=== PATIENT | female | born 1990 | race Caucasian/White ===

== ENCOUNTER 2018-08-03 14:52 | Emergency (ER) | payer OTHER ==
[2018-08-03 15:41] LABS: BILIRUBIN,URINE NEGATIVE (NEGATIVE); GLUCOSE, URINE (UA) NEGATIVE (NEGATIVE); KETONES,URINE (UA) NEGATIVE (NEGATIVE); LEUKOCYTE ESTERASE, URINE NEGATIVE (NEGATIVE); NITRITE,URINE NEGATIVE (NEGATIVE); OCCULT BLOOD,URINE NEGATIVE (NEGATIVE); PH,URINE 7.5 PH (5.0-7.5); PROTEIN,URINE NEGATIVE (NEGATIVE); UROBILINOGEN,URINE 0.2 (NORMAL) E.U./dL (NORMAL)
[2018-08-03 15:44] LABS: CLARITY,URINE CLEAR (CLEAR)
--- NOTE | 2018-08-03 15:55 | ED Physician Documentation ---
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 She was normally taking some Klonopin and she is not able to take this anymore. She is wondering what other types of things she can do. She believes she is 6 weeks and she has had a positive home because she is gone into the clinic and had the test there she has not had an ultrasound with this . Review of Systems Constitutional: denies: Fever, Chills Eyes: denies: Decreased vision Ears: denies: Ear pain Nose: denies: Rhinorrhea / runny nose, Congestion Throat: denies: Sore throat Cardiac: denies: Chest pain / pressure, Palpitations Respiratory: denies: Dyspnea, Cough GI: reports: Nausea. denies: Abdominal Pain, Vomiting, Constipation, Diarrhea : denies: Dysuria, Frequency Skin: denies: Rash Musculoskeletal: denies: Neck pain, Back pain, Extremity pain Neurologic: denies: Generalized weakness, Focal weakness, Numbness Psychiatric: reports: Anxiety PD PAST MEDICAL HISTORY - Present Medications Home Medications: Ambulatory Orders Medication Instructions Recorded Confirmed Folic Acid 1 mg PO DAILY 08/03/18 08/03/18 Pnv No.95/Ferrous Fum/Folic AC 1 tab PO DAILY 08/03/18 08/03/18 [ Caplet] metFORMIN [Glucophage] 500 mg PO ONCE 08/03/18 08/03/18 - Allergies Allergies/Adverse Reactions: Allergies Allergy/AdvReac Type Severity Reaction Status Date / Time cefprozil Allergy Hives Verified 08/03/18 15:00 cephalexin [From Keflex] Allergy Rash Verified 08/03/18 14:59 Penicillins Allergy Hives Verified 08/03/18 14:59 shellfish derived Allergy Hives Verified 08/03/18 15:01 PD ED PE NORMAL - Vitals Vital signs reviewed: Yes (hypertensive mild ) - General General: Alert and oriented X 3, Well developed/nourished, Other (breaks down in tears right away) - HEENT HEENT: Atraumatic, PERRL, EOMI - Neck Neck: Supple, no meningeal sign, No bony TTP - Cardiac Cardiac: RRR, No murmur - Respiratory Respiratory: No respiratory distress, Clear bilaterally - Abdomen Abdomen: Soft, Non tender - Back Back: No CVA TTP, No spinal TTP - Derm Derm: Normal color, Warm and dry, No rash - Extremities Extremities: No deformity, No edema - Neuro Neuro: Alert and oriented X 3, 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, No motor deficit, No sensory deficit, Normal speech Eye Opening: Spontaneous Motor: Obeys Commands Verbal: Oriented GCS Score: 15 - Psych Psych: Other (mood is anxious and the affect is labile) Results - Vitals Vitals: Vital Signs - 24 hr 08/03/18 08/03/18 14:56 16:32 Temperature 36.6 C 36.3 C L Heart Rate 82 65 Respiratory 17 18 Rate Blood Pressure 141/76 H 126/74 O2 Saturation 100 100 Oxygen O2 Source Room air - Labs Labs: Laboratory Tests 08/03/18 15:38 Urine Color YELLOW Urine Clarity CLEAR Urine pH 7.5 Ur Specific [place] 1.010 Urine Protein NEGATIVE Urine Glucose (UA) NEGATIVE Urine Ketones NEGATIVE Urine Occult Blood NEGATIVE Urine Nitrite NEGATIVE Urine Bilirubin NEGATIVE Urine Urobilinogen 0.2 (NORMAL) Ur Leukocyte Esterase NEGATIVE Ur Microscopic Review NOT INDICATED Urine Culture Comments NOT INDICATED Procedures - Bedside sono Bedside sono by EMP: With use of bedside ultrasound the pelvis is imaged and there is a gestational sac measuring 7 weeks 3 days with a pole present. PD MEDICAL DECISION MAKING - ED course Complexity details: reviewed results, re-evaluated patient, considered differ ential, d/w patient ED course: 28-year-old female with a history of anxiety is not able to take her Klonopin she does appear quite anxious she is taught techniques of yoga breathing and we have offered Benadryl to take at night. She has had counseling previously but this has been with a different provider each time and this has not been satisfactory for the patient. She has previously been on Prozac and this did cause her some problem with being able to drive. Social work is consulted for resources for counseling. Departure - Departure Disposition: Home, Self Care Clinical Impression: Early stage of , Anxiety Condition: Stable Instructions: Preg 1st Trimester Coping, Hyperventilation Syndrome, ED Stress React, ED Panic Attack, ED Care Follow-Up: Gloria Genao MD [Primary Care Provider] -
[2018-08-03 16:33] VITALS: BP 126/74
== END 2018-08-03 18:02 | disposition home or self-care (01) ==
LOC: ED 14:52
DX: O99.341 Other mental disorders complicating pregnancy, first trimester (principal)
CPT/HCPCS: 81001; 81003; 87086; 99283

== ENCOUNTER 2018-08-23 13:16 | Emergency (ER) | payer OTHER ==
[2018-08-23] MEDS ORDERED: diphenhydrAMINE INJ 50 MG/ML VIAL IVP STA (13:55)
[2018-08-23] MEDS ORDERED: SODIUM CHLORIDE 0.9% 1,000 ML IV ONE (13:55)
[2018-08-23] MEDS ORDERED: METOCLOPRAMIDE 10 MG/2 ML VIAL IVP STA (13:55)
--- NOTE | 2018-08-23 14:09 | ED Physician Documentation ---
History of Present Illness - Stated complaint Stated Complaint: 10 WKS PREG/VOMITING WEAKNESS - Chief complaint Chief Complaint: General - History obtained from History obtained from: Patient - History of Present Illness Timing: Other (G1, P0 at 10 weeks gestation presents with vomiting for 2 weeks that is worsening. She also has a Left retro-orbital headache similar to prior migraines and she was hesitant to take her Imitrex because of the . She also complains of 3 weeks of worsening nasal congestion and sinus pain without fevers.) Review of Systems Constitutional: denies: Fever, Chills Ears: denies: Ear pain Nose: reports: Rhinorrhea / runny nose, Congestion, Sinus pressure / pain Throat: denies: Sore throat GI: reports: Nausea, Vomiting. 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 : None HEENT: None Psych: Anxiety Musculoskeletal: None Derm: None - Past Surgical History Past Surgical History: Yes Ortho: ACL reconstruction HEENT: Other - Present Medications Home Medications: Ambulatory Orders Medication Instructions Recorded Confirmed Folic Acid 1 mg PO DAILY 08/03/18 08/03/18 Pnv No.95/Ferrous Fum/Folic AC 1 tab PO DAILY 08/03/18 08/03/18 [ Caplet] metFORMIN [Glucophage] 500 mg PO ONCE 08/03/18 08/03/18 Azithromycin [Zithromax] 1 tab PO DAILY #6 tablet 08/23/18 Metoclopramide [Reglan] 10 mg PO Q6H PRN #20 tablet 08/23/18 Mometasone Furoate [Nasonex] 1 spray NS BID #1 spray.pump 08/23/18 - Allergies Allergies/Adverse Reactions: Allergies Allergy/AdvReac Type Severity Reaction Status Date / Time cefprozil Allergy Hives Verified 08/23/18 13:23 cephalexin [From Keflex] Allergy Rash Verified 08/23/18 13:23 Penicillins Allergy Hives Verified 08/23/18 13:23 shellfish derived Allergy Hives Verified 08/23/18 13:23 - Social History Does the pt smoke?: No Smoking Status: Never smoker Does the pt drink ETOH?: No Does the pt have substance abuse?: No - Immunizations Immunizations are current?: No Immunizations: TDAP >10years/unknown - POLST Patient has POLST: No PD ED PE NORMAL - Vitals Vital signs reviewed: Yes - General General: Alert and oriented X 3, No acute distress - HEENT HEENT: Other (Tender the maxillary sinuses, normal oropharynx) - Neck Neck: Supple, no meningeal sign, No bony TTP - Cardiac Cardiac: RRR, No murmur - Respiratory Respiratory: No respiratory distress, Clear bilaterally - Abdomen Abdomen: Normal bowel sounds, Soft, Non tender - Female Female : Other (Bedside ultrasound demonstrates single live intrauterine with a heart rate 158.) - Extremities Extremities: No edema, No calf tenderness / cord - Neuro Neuro: Alert and oriented X 3, Normal speech Results - Vitals Vitals: Vital Signs - 24 hr 08/23/18 13:18 Temperature 36.7 C Heart Rate 67 Respiratory 14 Rate Blood Pressure 157/94 H O2 Saturation 100 Oxygen O2 Source Room air - Labs Labs: Laboratory Tests 08/23/18 14:04 Sodium 135 Potassium 3.6 Chloride 101 Carbon Dioxide 22 Anion Gap 12.0 BUN 6 Creatinine 0.6 Estimated GFR (MDRD) 121 Glucose 94 Calcium 9.5 Total Bilirubin 0.5 AST 16 ALT 13 Alkaline Phosphatase 51 Total Protein 8.0 Albumin 4.2 Globulin 3.8 Albumin/Globulin Ratio 1.1 Lipase 26 PD MEDICAL DECISION MAKING - ED course ED course: This is a 28-year-old woman with vomiting and . She was administered IV fluids, Reglan, and Benadryl which should also help with her headache. She does fit IDSA criteria for antibiotic treatment for rhinosinusitis as well, noting penicillin allergy, amoxicillin was not given. Departure - Departure Disposition: 01 Home, Self Care Clinical Impression: Hyperemesis Sinusitis Qualifiers: Sinusitis location: maxillary Chronicity: acute Recurrence: recurrent Qualified Code(s): J01.01 - Acute recurrent maxillary sinusitis Migraine Qualifiers: Migraine type: without aura Status migrainosus presence: with status migrainosus Intractability: not intractable Qualified Code(s): G43.001 - Migraine without aura, not intractable, with status migrainosus Condition: Good Record reviewed to determine appropriate education?: Yes Instructions: ED Sinusitis Abx Tx, ED Preg Morning Sickness Prescriptions: Azithromycin [Zithromax] 1 tab PO DAILY #6 tablet Metoclopramide [Reglan] 10 mg PO Q6H PRN #20 tablet PRN Reason: nausea or headache Mometasone Furoate [Nasonex] 1 spray NS BID #1 spray.pump Comments: Call your doctor to arrange a follow-up appointment, make the next available appointment. In the interim, return anytime if worse or if new symptoms develop.
[2018-08-23 14:24] LABS: ALBUMIN 4.2 g/dL (3.2-5.5); ALBUMIN/GLOBULIN RATIO 1.1 (1.0-2.2); BILIRUBIN,TOTAL 0.5 mg/dL (0.2-1.0); CALCIUM 9.5 mg/dL (8.5-10.3); CREATININE 0.6 mg/dL (0.4-1.0)
[2018-08-23 15:22] VITALS: BP 114/72
[2018-08-23 15:23] LABS: BILIRUBIN,URINE NEGATIVE (NEGATIVE); GLUCOSE, URINE (UA) NEGATIVE (NEGATIVE); KETONES,URINE (UA) TRACE mg/dL (NEGATIVE); LEUKOCYTE ESTERASE, URINE NEGATIVE (NEGATIVE); NITRITE,URINE NEGATIVE (NEGATIVE); OCCULT BLOOD,URINE NEGATIVE (NEGATIVE); PH,URINE 7.5 PH (5.0-7.5); PROTEIN,URINE NEGATIVE (NEGATIVE); UROBILINOGEN,URINE 0.2 (NORMAL) E.U./dL (NORMAL)
[2018-08-23 15:26] LABS: CLARITY,URINE CLEAR (CLEAR)
== END 2018-08-23 15:22 | disposition home or self-care (01) ==
LOC: ED 13:16
DX: O21.0 Mild hyperemesis gravidarum (principal); Z3A.10 10 weeks gestation of pregnancy; O99.89 Other specified diseases and conditions complicating pregnancy, childbirth and the puerperium; J01.01 Acute recurrent maxillary sinusitis; G43.901 Migraine, unspecified, not intractable, with status migrainosus
CPT/HCPCS: 36415; 80053; 81003; 83690; 96361; 96374; 96375; 99283; J1200; J2765; 81001; 87086

== ENCOUNTER 2018-09-29 08:43 | Emergency (ER) | payer OTHER ==
--- NOTE | 2018-09-29 09:40 | ED Physician Documentation ---
PD HPI URI - Stated complaint Stated Complaint: SOA, COUGH, BODY ACHES, CHEST PX, ANXIETY, 14WKS P - Chief complaint Chief Complaint: General - History obtained from History obtained from: Patient - History of Present Illness Timing - onset: How many weeks ago (1 week of cough and URI symptoms, then with migraine compatible headache started yesterday. She usually would take Maxalt, but is , so did not take anything. Has some headache still and nauseated, with vomiting since yesterday. Feeling generally weak. Feeling anxiety as well, about effect on .) Timing details: Gradual onset, Still present Associated symptoms: Rhinorrhea, Dry cough, Dyspnea (with the cough for the past week.), NVD (since yesterday with the migraine). No: Fever, Chills Contributing factors: Other (migraines episodic in the past, usually every few months.). No: Sick contact, COPD / asthma Worsened by: No: Activity Similar symptoms before: Diagnosis (migraines in the past. Has had some URIs in the past.) Review of Systems Constitutional: denies: Fever Nose: reports: Rhinorrhea / runny nose, Congestion Throat: denies: Sore throat Cardiac: denies: Chest pain / pressure Respiratory: reports: Dyspnea, Cough, Wheezing GI: reports: Nausea, Vomiting. denies: Abdominal Pain, Diarrhea : reports: Now EGA (14). denies: Dysuria, Frequency, Discharge Musculoskeletal: denies: Neck pain, Back pain Neurologic: reports: Generalized weakness, Headache (since yesterday c/w migraine symptoms). 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 : None HEENT: None Psych: Anxiety Musculoskeletal: None Derm: None - Past Surgical History Past Surgical History: Yes Ortho: ACL reconstruction HEENT: Other - Present Medications Home Medications: Ambulatory Orders Medication Instructions Recorded Confirmed Folic Acid 1 mg PO DAILY 08/03/18 08/03/18 Pnv No.95/Ferrous Fum/Folic AC 1 tab PO DAILY 08/03/18 08/03/18 [ Caplet] metFORMIN [Glucophage] 500 mg PO ONCE 08/03/18 08/03/18 Azithromycin [Zithromax] 1 tab PO DAILY #6 tablet 08/23/18 Metoclopramide [Reglan] 10 mg PO Q6H PRN #20 tablet 08/23/18 Mometasone Furoate [Nasonex] 1 spray NS BID #1 spray.pump 08/23/18 - Allergies Allergies/Adverse Reactions: Allergies Allergy/AdvReac Type Severity Reaction Status Date / Time cefprozil Allergy Hives Verified 09/29/18 08:55 cephalexin [From Keflex] Allergy Rash Verified 09/29/18 08:55 Penicillins Allergy Hives Verified 09/29/18 08:55 shellfish derived Allergy Hives Verified 09/29/18 08:55 - Social History Does the pt smoke?: No Smoking Status: Never smoker Does the pt drink ETOH?: No Does the pt have substance abuse?: No - Immunizations Immunizations are current?: No Immunizations: TDAP >10years/unknown - POLST Patient has POLST: No PD ED PE NORMAL - Vitals Vital signs reviewed: Yes - General General: Alert and oriented X 3, Well developed/nourished, Other (seems uncomfortable but conversant. Light sensitive. ) - HEENT HEENT: PERRL, EOMI (light sensitive), Ears normal, Pharynx benign - Neck Neck: Supple, no meningeal sign, No adenopathy - Cardiac Cardiac: RRR, No murmur - Respiratory Respiratory: Clear bilaterally - Abdomen Abdomen: Soft, Non tender, Other (bedside U/S showing IUP with good movement and heart rate. No pelvic free fluid seen. ) - Female Female : Deferred - Rectal Rectal: Deferred - Back Back: No CVA TTP - Derm Derm: Normal color, Warm and dry, No rash - Extremities Extremities: Normal ROM s pain, No edema, No calf tenderness / cord - Neuro Neuro: Alert and oriented X 3, No motor deficit, Normal speech Results - Vitals Vitals: Vital Signs - 24 hr 09/29/18 09/29/18 08:52 10:13 Temperature 36.3 C L 36.8 C Heart Rate 87 81 Respiratory 20 16 Rate Blood Pressure 136/88 H 122/81 H O2 Saturation 99 99 Oxygen O2 Source Room air PD MEDICAL DECISION MAKING - ED course Complexity details: re-evaluated patient (Discussed with patient getting IV fluids and meds for migraine and nausea. She had gotten IV placed and then nurses say the patient got anxious and wanted to leave without medications. States has Rx for antiemetic at home. We had talked about what OTC meds are okay in . ), considered differential (bedside U/S by me showed normal IUP with HR 150s and visible movement. No free fluid in pelvis. ), d/w patient Departure - Departure Disposition: ED [place] Clinical Impression: Qualifiers: Weeks of gestation: 14 weeks Qualified Code(s): Z3A.14 - 14 weeks gestation of Migraine headache Qualifiers: Migraine type: without aura Status migrainosus presence: with status migrainosus Intractability: not intractable Qualified Code(s): G43.001 - Migraine without aura, not intractable, with status migrainosus Upper respiratory infection Qualifiers: URI type: unspecified URI Qualified Code(s): J06.9 - Acute upper respiratory infection, unspecified Condition: Stable Record reviewed to determine appropriate education?: Yes Discharge Date/Time: 09/29/18 10:55
[2018-09-29] MEDS ORDERED: SODIUM CHLORIDE 0.9% 1,000 ML IV ONE ×2 (09:52→09:53)
[2018-09-29] MEDS ORDERED: diphenhydrAMINE INJ 50 MG/ML VIAL IVP STA (09:52)
[2018-09-29] MEDS ORDERED: METOCLOPRAMIDE 10 MG/2 ML VIAL IVP STA (09:52)
[2018-09-29] MEDS ORDERED: KETOROLAC 15 MG/ML VIAL IVP STA (09:52)
[2018-09-29] MEDS ORDERED: DEXAMETHASONE 10 MG/ML VIAL IVP STA (09:53)
[2018-09-29 10:14] VITALS: BP 122/81
== END 2018-09-29 10:55 | disposition left against medical advice (07) ==
LOC: ED 08:43
DX: O99.352 Diseases of the nervous system complicating pregnancy, second trimester (principal); G43.001 Migraine without aura, not intractable, with status migrainosus; O98.812 Other maternal infectious and parasitic diseases complicating pregnancy, second trimester; J06.9 Acute upper respiratory infection, unspecified; Z3A.14 14 weeks gestation of pregnancy
CPT/HCPCS: 87275; 87276; 99283; 99284

== ENCOUNTER 2018-12-14 11:03 | Outpatient (CLI) | payer OTHER ==
[2018-12-14 12:16] LABS: MEAN CORPUSCULAR HEMOGLOBIN 30.1 pg (27.0-31.0); MEAN CORPUSCULAR HGB CONC 33.2 g/dL (32.0-36.0); MEAN CORPUSCULAR VOLUME 90.7 fL (81.0-99.0); MEAN PLATELET VOLUME 11.1 fL (7.9-10.8); RED BLOOD COUNT 4.32 10^6/uL (4.20-5.40); WHITE BLOOD COUNT 10.4 x10^3/uL (4.8-10.8)
== END 2018-12-14 11:04 | disposition home or self-care (01) ==
LOC: LAB 11:03
PROVIDERS: ATTEND Nurse Practitioner Obstetrics & Gynecology
DX: Z36.89 Encounter for other specified antenatal screening (principal)
CPT/HCPCS: 36415; 82950; 85027; 86850

== ENCOUNTER 2019-02-09 19:41 | Outpatient (CLI) | payer OTHER ==
[2019-02-09 19:56] VITALS: BP 116/80
--- NOTE | 2019-02-10 01:37 | Ultrasound Report ---
Reason: Pain from fall Procedure Date: 02/10/2019 Accession Number: [id number] / [id number] Procedure: US - OB Limited CPT Code: FULL RESULT: EXAM: LIMITED OBSTETRICAL ULTRASOUND EXAM DATE: 02/10/2019 01:23 AM. CLINICAL HISTORY: Pain from fall. COMPARISON: None. TECHNIQUE: Real-time sonographic evaluation of the fetus performed by the weatherization specialist. Multiple architectural representative static images were saved for review. Additional transvaginal imaging to more accurately evaluate cervical length and placental position. DATING: Established EGA 33 weeks 6 days with WOO 03/25/2019. GENERAL EVALUATION Jacome . Cardiac activity: 127 bpm. movement: Visualized. Presentation: Cephalic. Placenta: Anterior position. No previa or abruption. Amniotic fluid: Normal. SHA 25 cm. MVP 7.15 cm. MATERNAL STRUCTURES The cervix measures 2.8 cm, and is closed. IMPRESSION: 1. Jacome live intrauterine with gestational age 33 weeks 6 days based on established WOO. 2. Anterior placenta, without evidence of previa or abruption. RADIA
--- NOTE | 2019-02-10 10:19 | PROVIDER PROGRESS NOTE ---
- HPI Chief Complaint: Maternal trauma Current : Current EDU 03/25/19 Gestation 33 Weeks and 5 Days 1 Para 0 Vital Signs Temperature 36.7 C 02/09/19 19:53 Heart Rate 76 02/09/19 19:53 Respiratory Rate 16 02/09/19 19:53 Blood Pressure 116/80 02/09/19 19:53 O2 Saturation 96 02/09/19 19:53 Temperature 36.7 C 02/09/19 19:53 Heart Rate 76 02/09/19 19:53 Respiratory Rate 16 02/09/19 19:53 Blood Pressure 116/80 02/09/19 19:53 O2 Saturation 96 02/09/19 19:53 - Procedures OB Procedure Performed: NST Diagnosis/Indication for NST: Other NST Procedure: NST reactive. Baseline 140s, moderate variability, + accels, no decels Initially uterine irritability noted via tocometry, which progressed to mild contractions every 5-9 minutes with soft resting tone despite adequate hydration. Service Date of procedure: 02/09/19 - Plan Plan: Dulce Maria presents to [facility] following a fall after stepping out of the bathtub into a puddle and hitting her abdomen directly on the edge of her tub. She denies vaginal bleeding, leakage of fluid or contractions. She reports initially she did not feel movement but on her drive here and since she has been feeling adequate movement. She denies pain or abdominal discomfort but states she will likely be sore tomorrow secondary to her fall. Physical Exam: No evidence of abrasion or visible injury to abdomen or other impacted areas of the body. No abdominal pain, tenderness, or rigidity upon palpation. Date read 02/09/2019 NST reactive. Baseline 140s, moderate variability, + accels, no decels. Initial uterine irritability appreciated via tocomety. For an approximate 2 hour period of time, contractions palpate mild every 5-9 minutes with soft resting tone despite adequate hydration. Pt appreciates contractions and prior to discharge home contractions did decrease. Extended monitoring x 6 hours. Limited OB ultrasound reveals SHA 25, Transvaginal cervical length 2.8cm, closed, no evidence of placental abruption Patient released home with precautions and advised daily kick counts. Pt verbalized understanding and agrees to above plan. She denies further questions or concerns at this time. FINAL DIAGNOSIS: Fall during , initial encounter 33wk gestation of
== END 2019-02-10 01:55 | disposition home or self-care (01) ==
LOC: WFO 19:41 → FBP 19:43 → WFO 02-10 01:55
PROVIDERS: ATTEND Nurse Practitioner Obstetrics & Gynecology
DX: Z04.3 Encounter for examination and observation following other accident (principal); O47.03 False labor before 37 completed weeks of gestation, third trimester; Z3A.33 33 weeks gestation of pregnancy
CPT/HCPCS: 76815; 76817; 99214

== ENCOUNTER 2019-02-28 08:00 | Outpatient (CLI) | payer OTHER ==
[2019-02-28 21:15] LABS: TRICHOMONAS VAGINALIS DNA NEGATIVE (NEGATIVE)
== END 2019-02-28 23:59 | disposition home or self-care (01) ==
LOC: LAB.R 08:00
PROVIDERS: ATTEND Nurse Practitioner Obstetrics & Gynecology
DX: Z36.85 Encounter for antenatal screening for Streptococcus B (principal); Z36.89 Encounter for other specified antenatal screening
CPT/HCPCS: 87491; 87591; 87661; 87797

== ENCOUNTER 2019-03-14 10:05 | Outpatient (CLI) | payer OTHER ==
[2019-03-14 10:21] LABS: HGB - HEMOGLOBIN 13.6 g/dL (12.0-16.0); MEAN CORPUSCULAR HEMOGLOBIN 29.7 pg (27.0-31.0); MEAN CORPUSCULAR HGB CONC 33.4 g/dL (32.0-36.0); MEAN CORPUSCULAR VOLUME 88.9 fL (81.0-99.0); MEAN PLATELET VOLUME 10.5 fL (7.9-10.8); RED BLOOD COUNT 4.58 10^6/uL (4.20-5.40); RED CELL DISTRIBUTION WIDTH 12.8 % (12.0-15.0); WHITE BLOOD COUNT 12.2 x10^3/uL (4.8-10.8)
[2019-03-14 10:37] VITALS: BP 117/63
--- NOTE | 2019-03-14 12:24 | PROCEDURE REPORT ---
- HPI Diagnosis/Indication for NST: Decreased movement Current EDU 03/25/19 Gestation 38 Weeks and 3 Days 1 Para 0 Vital Signs Heart Rate 99 03/14/19 10:35 Respiratory Rate 16 03/14/19 10:35 Blood Pressure 117/63 03/14/19 10:35 O2 Saturation 100 03/14/19 10:35 Temperature Heart Rate 99 03/14/19 10:35 Respiratory Rate 16 03/14/19 10:35 Blood Pressure 117/63 03/14/19 10:35 O2 Saturation 100 03/14/19 10:35 - NST Procedure NST Procedure Start Date 03/14/19 Start Time 10:30 Stop Time 11:02 Vibroacoustic Stimulation Used No Patient States Movement Yes: decreased - Results and Plan Findings/Impression: NST read 03/14/2019 NST reactive. Baseline 135, moderate variability, + accels, no decels No contractions appreciated via tocometry Final diagnosis: Decreased movement, third trimester Plan: Pt released home with precautions. Reviewed FM monitoring and advised daily kick counts secondary to decreased movement. Pt verbalized understanding and agrees to above plan. She denies further questions or concerns at this time.
== END 2019-03-14 11:10 | disposition home or self-care (01) ==
LOC: WFO 10:05 → FBP 10:18 → WFO 11:10
PROVIDERS: ATTEND Nurse Practitioner Obstetrics & Gynecology
DX: O36.8130 Decreased fetal movements, third trimester, not applicable or unspecified (principal); Z3A.38 38 weeks gestation of pregnancy
CPT/HCPCS: 36415; 59025; 85027

== ENCOUNTER 2019-03-20 06:26 | Inpatient (IN) | payer OTHER ==
[2019-03-20] MEDS ORDERED: SODIUM CHLORIDE FLUSH 0.9% 10 ML SYRINGE ONE (07:22)
[2019-03-20] MEDS ORDERED: ONDANSETRON 4 MG/2 ML VIAL IVP PRN ×2 (07:33→14:19)
--- NOTE | 2019-03-20 07:41 | HISTORY & PHYSICAL EXAMINATION ---
Admit History - Visit Reason Visit Reason: Other - : 1 Parity: 0 Premature: 0 Ectopic: 0 : 0 Care: positive: [facility] Risk/History: positive: None Complications This : positive: None Smoking Status: Never smoker - Mother's Labs Mother's Blood Type: positive: AB Mother's RH: positive: Negative GBS: positive: Group B Step Negative Rubella Status: positive: Immune Meds/Allgy - Home Medications Home Medications: Ambulatory Orders Medication Instructions Recorded Confirmed Folic Acid 1 mg PO DAILY 08/03/18 08/03/18 Pnv No.95/Ferrous Fum/Folic AC 1 tab PO DAILY 08/03/18 08/03/18 [ Caplet] metFORMIN [Glucophage] 500 mg PO ONCE 08/03/18 08/03/18 Azithromycin [Zithromax] 1 tab PO DAILY #6 tablet 08/23/18 Metoclopramide [Reglan] 10 mg PO Q6H PRN #20 tablet 08/23/18 Mometasone Furoate [Nasonex] 1 spray NS BID #1 spray.pump 08/23/18 - Allergies Allergies/Adverse Reactions: Allergies Allergy/AdvReac Type Severity Reaction Status Date / Time cefprozil Allergy Hives Verified 09/29/18 08:55 cephalexin [From Keflex] Allergy Rash Verified 09/29/18 08:55 iodine Allergy Anaphylaxis Verified 03/20/19 07:16 Penicillins Allergy Hives Verified 09/29/18 08:55 shellfish derived Allergy Hives Verified 09/29/18 08:55 Review of Systems - Constitutional Constitutional: denies: Fatigue, Chills, Malaise - Eyes Eyes: denies: Blurred vision, Spots in vision, Dipolpia - Cardiovascular Cariovascular: denies: Irregular heart rate, Palpitations, Chest pain, Edema - Respiratory Respiratory: denies: SOB at rest - Gastrointestinal Gastrointestinal: denies: Abdominal pain, Change in bowel habits, Nausea, Vomiting - Integumentary Integumentary: denies: Rash, Pruritis - Neurological Neurological: denies: Headache, Dizziness - Psychiatric Psychiatric: reports: Anxiety Physical - Abdominal Exam Contraction Intensity: positive: Mild Uterine Resting Tone: positive: Soft - Monitoring Strip Review: positive: Category I - Presentation Presentation: positive: Vertex - Vaginal Exam Membranes: positive: Membranes ruptured Dilation (in cm): 3-4 Effacement (%): 75 Station: positive: 0 Cervical Position: positive: Midposition - Speculum Exam Speculum Exam Performed: positive: No Plan for Labor - Plan For Labor I expect patient to be DC'd or transferred within 96 hours.: Yes Plan for Labor: HPI: this 29yo @ 39.2wks gestation by LMP c/w 10.4wk U/S presents to [facility] for elective induction of labor. Upon arrival cervix was 3-4/75/0, midposition, soft, vertex. She has been a patient of [facility] since 24wks gestation at which time she was a transfer of care from [facility] where she received regular care. Her has been complicated only by significant third trimester anxiety and occasional panic attacks for which she declined medication. She does have a hx of anxiety and depression but has verbalized on multiple occasions that medications have not worked well for her in the past. She feels strongly that her anxiety stems from the discomfort she has continued to feel throughout her third trimester. She is also noted to be Rh negative and received a Rhogam injection 01/10/19. AROM occurred on 03/20/19 at 0730 and was noted to be a moderate amount of clear fluid. She was admitted to [facility] for management. Her is supportive at the bedside. Dating criteria: LMP 06/18/2018 Initial ultrasound @ 10.4wks - agrees Serial exams - agree OB History: G1: current PMHx: Headaches, anxiety disorder, asthma, PCOS, Seizure as a baby; NO Hx HSV Surgical Hx: Left ACL 11/2017, Right ACL 12/2006; Soft pallet reconstruction 1994; Left radius reconstruction 2004 Social Hx: Never smoker, no ETOH of IVDA. 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 Family Hx: Anxiety/depression - mother; Heart disease - mother; lung/respiratory disease - mother; Ovarian cysts - mother; Asthma - mother, father; Blood clots - father; arthritis - father; Seizures - father; Stroke/CVA - father labs: Blood type AB negative; antibody negative Rubella immune Hgb 13.6 Hct 40.7 PLT 202 RPR non-reactive Hep B neg HIV neg Varicella immune Hep C neg GC/CT neg 1 hour GTT 110 GBS negative Genetic testing: Serum integrated screen - negative Immunizations: Tdap & Rhogam 01/10/2019 Influenza - declined Ultrasounds: Initial ultrasound @ 10.4wks gestation c/w LMP dating FAS WNl, 3VC. Posterior placenta, no previa. Size c/w dating Physical Exam: Normocephalic, atraumatic PERRLA Heart RRR w/o M/G/R Lungs CTAB Abdomen gravid, soft, nontender EFW 3200g SVE 3-4/75/0, soft, midposition, vertex AROM @ 0730 was noted to be a moderate amount of clear fluid FHR baseline 130s, moderate variability, + accels, no decels - FHR Category I Bilateral LE's trace edema Assessment: 29yo @ 39.2wks gestation by LMP c/w 10.4wk U/S FHR Category I AROM @ 0730 GBS neg Elective IOL Anxiety Plan: Expectant management x 4 hours, then initiate pitocin with titration per protocol at that time if contractions not palpating moderate-firm q 4-5 min Continuous monitoring Jacuzzi PRN, Nitrous oxide PRN Epidural per maternal request Anticipate
[2019-03-20] MEDS: SODIUM CHLORIDE FLUSH 0.9% 10 ML SYRINGE IVP PRN ×2 (07:50→21:20)
[2019-03-20 08:00] LABS: BASOPHILS % (AUTO) 0.2 %; EOSINOPHILS # (AUTO) 0.1 10^3/uL (0.0-0.7); HGB - HEMOGLOBIN 12.6 g/dL (12.0-16.0); LYMPHOCYTES # (AUTO) 2.5 10^3/uL (1.5-3.5); LYMPHOCYTES % (AUTO) 22.8 %; MEAN CORPUSCULAR HEMOGLOBIN 29.4 pg (27.0-31.0); MEAN CORPUSCULAR HGB CONC 33.1 g/dL (32.0-36.0); MEAN CORPUSCULAR VOLUME 88.8 fL (81.0-99.0); MEAN PLATELET VOLUME 11.4 fL (7.9-10.8); MONOCYTES # (AUTO) 0.9 10^3/uL (0.0-1.0); MONOCYTES % (AUTO) 8.7 %; NEUTROPHILS # (AUTO) 7.2 10^3/uL (1.5-6.6); NEUTROPHILS % (AUTO) 66.6 %; PLT - PLATELET COUNT 226 10^3/uL (130-450); RED BLOOD COUNT 4.29 10^6/uL (4.20-5.40); RED CELL DISTRIBUTION WIDTH 13.1 % (12.0-15.0); WHITE BLOOD COUNT 10.8 x10^3/uL (4.8-10.8)
[2019-03-20] MEDS ORDERED: LACTATED RINGERS 1,000 ML IV SCH (08:00)
[2019-03-20] MEDS ORDERED: SODIUM CHLORIDE FLUSH 0.9% 10 ML SYRINGE IVP SCH (09:00)
--- NOTE | 2019-03-20 12:23 | PROVIDER PROGRESS NOTE ---
Labor Progress Note - Uterine Monitoring Uterine Monitoring Mode: positive: External toco Contraction Frequency (min/apart): 5-8 Contraction Intensity: positive: Moderate Uterine Resting Tone: positive: Soft - Monitoring Monitor Mode: positive: External ultrasound Heart Rate Baseline: 120 Heart Rate Variability: positive: Moderate (6-25 bmp) Accelerations: positive: Present, 15x15 Decelerations: positive: None Strip Review: positive: Category I - Vaginal Exam Dilation (in cm): 5 Effacement (%): 80 Station: 0 Cervical Position: Midposition - Labor Progress Note Labor Progress Note/Additional Text: S: Breathing through contractions and rating them 8/10 on a pain scale. She is wanting to get into the [facility] to help manage her discomfort. She intends an unmedicated delivery. Her , mother, and father are all supportive at the bedside. O: FHR baseline 120, moderate variability, + accels, no decels SVE 5/80/0, soft, vertex Contractions palpate moderate every 5-8 minutes with soft resting tone A: 29yo @ 39.2wks gestation Active labor GBS neg FHR Category I AROM x 5 hours P: Continue expectant management Continuous monitoring Epidural per maternal request Anticipate
[2019-03-20] MEDS ORDERED: OXYTOCIN/DEXTROSE 5 % 30 UNIT/500 ML BAG IV ONE (13:28)
[2019-03-20] MEDS ORDERED: miSOPROStoL 200 MCG TABLET ONE (13:28)
[2019-03-20] MEDS ORDERED: LIDOCAINE-MPF 1% 30 ML VIAL ONE (13:28)
[2019-03-20] MEDS ORDERED: fentaNYL 100 MCG/2 ML VIAL ONE (13:44)
[2019-03-20] MEDS ORDERED: ROPIVACAINE 0.2% 200 MG/100 ML BAG EP ONE (13:47)
[2019-03-20] MEDS ORDERED: fentaNYL 100 MCG/2 ML VIAL IVP PRN (13:50)
[2019-03-20] MEDS ORDERED: NALBUPHINE 10 MG/ML AMP IVP PRN (14:19)
[2019-03-20] MEDS ORDERED: ePHEDrine 50 MG/ML VIAL IVP PRN (14:19)
[2019-03-20] MEDS ORDERED: NALOXONE 0.4 MG/ML VIAL IVP PRN (14:19)
[2019-03-20] MEDS ORDERED: ROPIVACAINE 0.2% 200 MG/100 ML BAG EP PRN (14:19)
[2019-03-20] MEDS ORDERED: LACTATED RINGERS 500 ML IV ONE (14:19)
--- NOTE | 2019-03-20 14:22 | ANESTHESIA ---
Pre-Anesthesia VS, & Labs - Diagnosis active labor - Procedure vaginal delivery Height 5 ft 4 in Weight (kg) 99.337 kg Body Mass Index 34.3 - NPO Other (clear liquids) - Is Patient ?: Yes - Lab Results Current Lab Results: Laboratory Tests 03/20/19 07:46: WBC 10.8, RBC 4.29, Hgb 12.6, Hct 38.1, MCV 88.8, MCH 29.4, MCHC 33.1, RDW 13.1, Plt Count 226, MPV 11.4 H, Neut # (Auto) 7.2 H, Lymph # (Auto) 2.5, Crook # (Auto) 0.9, Eos # (Auto) 0.1, Baso # (Auto) 0.0, Absolute Nucleated RBC 0.00, Nucleated RBC % 0.0 Fish Bones: 03/20/19 07:46 Home Medications and Allergies Active Medications Lactated Ringer's (Lr) 1,000 mls @ 100 mls/hr IV .Q10H CHRISTINA Ondansetron HCl (Zofran Inj) 4 mg IVP Q4HR PRN PRN Reason: Nausea / Vomiting Sodium Chloride (Normal Saline Flush 0.9%) 10 ml IVP 0100,0900,1700 CHRISTINA Sodium Chloride (Normal Saline Flush 0.9%) 10 ml IVP PRN PRN PRN Reason: NEEDED PER PROVIDER ORDERS Folic Acid 1 mg PO DAILY 08/03/18 Pnv No.95/Ferrous Fum/Folic AC [ Caplet] 1 tab PO DAILY 08/03/18 metFORMIN [Glucophage] 500 mg PO ONCE 08/03/18 Allergies/Adverse Reactions: Allergies Allergy/AdvReac Type Severity Reaction Status Date / Time cefprozil Allergy Hives Verified 09/29/18 08:55 cephalexin [From Keflex] Allergy Rash Verified 09/29/18 08:55 iodine Allergy Anaphylaxis Verified 03/20/19 07:16 Penicillins Allergy Hives Verified 09/29/18 08:55 shellfish derived Allergy Hives Verified 09/29/18 08:55 Anes History & Medical History - Anesthetic History Anesthesia Complications: reports: No previous complications - Medical History Cardiovascular: reports: None Pulmonary: reports: None Gastrointestinal: reports: None Urinary: reports: None Neuro: reports: None Musculoskeletal: reports: None Endocrine/Autoimmune: reports: None Blood Disorders: reports: None Skin: reports: None Smoking Status: Never smoker Psychosocial: reports: Depression, Anxiety - Surgical History Eyes Ears Nose Throat (EENT): Other Orthopedic: ACL reconstruction - Obstetrical History : 1 Parity: 0 Events: positive: None Complications: positive: None Exam General: Alert, Oriented x3, Cooperative, No acute distress Dental: WNL Mouth Openin Fingerbreadth Neck Mobility: Normal Mallampati classification: II Thyromental Distance: greater than 6 cm Plan Anesthesia Type: Epidural Consent for Procedure(s) Verified and Reviewed: Yes Code Status: Attempt Resuscitation ASA classification: 2-Mild systemic disease Is this case an emergency?: No
[2019-03-20] MEDS ORDERED: WITCH HAZEL/GLYCERIN 1 PAD TOP PRN (17:08)
[2019-03-20] MEDS ORDERED: HYDROCORTISONE 1% CREAM 28 GM TUBE PR PRN (17:08)
--- NOTE | 2019-03-20 17:15 | DELIVERY NOTE ---
Delivery Note - Labor Labor: positive: Induced by ARM - Infant Delivery Method Delivery Method: positive: Spontaneous vaginal delivery - Presentation Presentation: positive: Vertex, MIKAYLA - left occiput anterior - Nuchal Cord Nuchal Cord: positive: None - Amniotic Fluid Description Amniotic Fluid Description: positive: Clear - Episiotomy Type Episiotomy Type: positive: None - Laceration Laceration: positive: 1st degree, Vaginal - Delivery Outcome Delivery Outcome: positive: Livebirth - [place]: positive: Placed in direct skin contact with mother, Stimulated, Warmed, [place] used [place] sex: positive: Male - Cord Cord: positive: 3 vessels - Placenta Placenta: positive: Intact, Spontaneous - Estimated Blood Loss Estimated Blood Loss (in cc): 150 - Post Delivery Events Post Delivery Events: positive: No post delivery events - Delivery Comments (Free Text/Narrative) Delivery Comments (Free Text/Narrative): Labor: This 29yo @ 39.2wks gestation presented at 0630 on 03/20/2019 for elective induction of labor. Upon arrival her cervix was noted to be 3/75/0, midposition, soft, vertex. FHR Category I throughout labor. AROM occurred at 0730 and was noted to be a moderate amount of clear fluid. Normal labor course with labor onset 1127. Epidural placed per maternal request. The patient progressed to c/c/0 at 1609. : Normal of viable male on 03/20/2019 at 1634. No nuchal cord. The was placed on maternal abdomen, stimulated, dried, and placed skin to skin. 's were 9/9 at 1 and 5 min respectively. The umbilical cord was allowed to stop pulsating at which time it was doubly clamped by CNM and cut by FOB. Pitocin administered via IV for hemostasis. Cord blood was obtained. 3VC. Placenta delivered spontaneously and intact at 1641. EBL 150mL. Uterine fundus firm and there is no excessive bleeding. The perineum, vagina, and cervix were inspected and found to have a minor first degree vaginal laceration which was hemostatic and left unrepaired. In addition there were bilateral labial lacerations which were minor and hemostatic and also left unrepaired. initiated. Family bonding well. Both mother and baby were left in stable condition.
[2019-03-20] MEDS: IBUPROFEN 800 MG TABLET PO SCH ×2 (17:43→23:30)
[2019-03-20] MEDS: ACETAMINOPHEN 500 MG TABLET PO SCH (17:44)
[2019-03-20] MEDS: DOCUSATE SODIUM 100 MG CAPSULE PO SCH (22:55)
[2019-03-21] MEDS: ACETAMINOPHEN 500 MG TABLET PO SCH ×2 (01:55→09:07)
[2019-03-21] MEDS: IBUPROFEN 800 MG TABLET PO SCH ×2 (05:32→18:51)
[2019-03-21] MEDS: DOCUSATE SODIUM 100 MG CAPSULE PO SCH (09:08)
--- NOTE | 2019-03-21 12:56 | PROVIDER PROGRESS NOTE ---
Subjective - Subjective Subjective: S: Bonding well with baby. without difficulty. Bleeding decreased and is light. Pain well controlled with oral medications. Family supportive at the bedside. O: BP 118/83, HR 80, RR 16, T 36.9 Heart RRR w/o M/G/R, lungs CTAB, abdomen soft and nontender with fundus firm at U, bilateral LE's no edema A: 29yo -->P1 PPD#1 s/p TSVD of viable male P: Continue routine pp care and medications. Evaluate for discharge home tomorrow. Objective - Vital Signs/Intake & Output Vital Signs: Vital Signs x48h Temp Pulse Resp BP 03/21/19 12:45 36.9 C 80 16 118/83 H 03/21/19 07:41 36.8 C 80 16 120/76 Intake & Output: Intake & Output 03/18/19 03/19/19 03/20/19 03/21/19 23:59 23:59 23:59 23:59 Intake Total 1000.0 Output Total 1350 Balance -350.0 - Lab Results Fish Bones: 03/20/19 07:46
[2019-03-22] MEDS: ACETAMINOPHEN 500 MG TABLET PO SCH ×2 (07:37→07:38)
[2019-03-22] MEDS: IBUPROFEN 800 MG TABLET PO SCH ×2 (07:38→08:20)
[2019-03-22] MEDS: DOCUSATE SODIUM 100 MG CAPSULE PO SCH ×2 (07:38→08:59)
--- NOTE | 2019-03-22 07:58 | Discharge Plan ---
Discharge Plan Problem Reviewed?: Yes Disposition: Home, Self Care Condition: Good Diet: Regular Activity Restrictions: No Restrictions Shower Restrictions: No Driving Restrictions: No Weight Bearing: Full Weight No Smoking: If you smoke, Please STOP! Call for help. Follow-up with: Elisabet Wang CNM, ARNP [Provider Admit Priv/Credential] -
--- NOTE | 2019-03-22 08:09 | PROVIDER PROGRESS NOTE ---
Subjective - Subjective Subjective: FINAL PROGRESS NOTE: S: Bonding well with baby. without difficulty. Pain well controlled with oral medications. Bleeding decreased and is light. supportive at the bedside. They are ready to go home today. O: BP 120/75, T 37.1, RR 15, HR 79 Heart RRR w/o M/G/R, Lungs CTAB, abdomen soft and nontender with fundus firm at U-1. Bilateral LE's no edema. A: 29yo -->P1 PPD#1 s/p TSVD of viable male P: Reviewed pp self care and warning s/sx. Advised continuation of PNV while Advised OTC ibuprofen and tylenol PRN pain F/u in 1 week for support visit PRN F/u in 3 weeks for routine pp visit. Pt verbalized understanding and agrees to above plan. She denies further questions or concerns today. Objective - Vital Signs/Intake & Output Vital Signs: Vital Signs x48h Temp Pulse Resp BP Pulse Ox 03/22/19 02:00 37.1 C 79 15 120/75 99 Intake & Output: Intake & Output 03/19/19 03/20/19 03/21/19 03/22/19 23:59 23:59 23:59 23:59 Intake Total 1000.0 Output Total 1350 Balance -350.0 - Lab Results Fish Bones: 03/20/19 07:46
--- NOTE | 2019-03-22 08:45 | DISCHARGE SUMMARY ---
Physician: TARAN Nicole DATE OF ADMISSION: 03/20/2019 DATE OF DISCHARGE: 03/22/2019 DIAGNOSES ON ADMISSION 1. A 29-year-old, G1, P0, at 39.2 weeks' gestation by last menstrual period consistent with 10.4 wee k ultrasound. 2. Artificial rupture of membranes at 0730. 3. Group B Streptococcus negative. 4. Elective induction of labor. 5. Anxiety. DIAGNOSES ON DISCHARGE 1. A 29-year-old, G1, P1-0-0-1, status post spontaneous vaginal delivery on 03/20/2019. 2. . 3. Normal recovery. HISTORY OF PRESENT ILLNESS: She is a patient of [facility] who presents at 0630 on 03/20/2019 for elective induction of labor. Upon arrival, her cervix was noted to be 3 cm dilated, 7 5%, 0 station, mid position, soft and vertex. Artificial rupture of membranes occurred at 0730 and w as noted to be a moderate amount of clear fluid. Epidural placed per maternal request. Normal labor course. The patient progressed to spontaneously deliver a viable male on 03/20/2019 at 1634. EBL 150 mL. Apgars were 9 and 9 at 1 and 5 minutes, respectively. The perineum, vagina and cervix were inspected and found to have a minor first-degree vaginal laceration, which was hemostatic and l eft unrepaired. In addition, there were bilateral labial lacerations, first-degree which were minor and hemostatic and also left unrepaired. She has been doing well in her course. She is ambulating and tolerating a regular diet. She is urinating without difficulty and her lochia is normal. Her pain is well controlled with oral medications. She will be discharged home today on day #2 with instructions to continue he r vitamin while , and to continue [id number] ibuprofen and Tylenol as nee ded for pain management. She intends to followup with myself at [facility] in 1 wee k for support visit if needed and in 3 weeks for routine visit. She has been gi [facility]son precautions to call if she has any worsening fevers, chills, abdominal pain, increased bleeding o r foul-smelling vaginal lochia. TD: 03/22/2019 08:26
[2019-03-22 12:14] VITALS: BP 124/84
--- NOTE | 2019-03-22 12:58 | Labor Flowsheet ---
Labor Flowsheet Datetime Report Generated by CPN: 03/22/2019 12:58 Datetime: 03/22/2019 12:11 VITAL SIGNS NBP Sys/Kath/Mean (mmHg): 124 : 84 : 92 Pulse: 55 LaborFlag: Labor Datetime: 03/21/2019 20:19 SpO2 (%): 100 Datetime: 03/20/2019 16:41 STAGE 2 Stage 2 Comments: 1641 placenta Datetime: 03/20/2019 16:24 COMMUNICATION Communication: RN Reviewed Strip; Provider at Bedside Datetime: 03/20/2019 16:11 Provider Notified (Name): Elisabet Felipe CNM Communication Comments: Called to come for delivery Datetime: 03/20/2019 16:09 VAGINAL EXAM Dilatation (cm): 10.0 Effacement (%): 100 Station: 3 Exam by: T Jose Carlos RNC Datetime: 03/20/2019 16:07 Patient Position/Activity: Left Lateral Datetime: 03/20/2019 16:00 Respirations: 16 Temperature (C): 36.5 Datetime: 03/20/2019 15:44 UTERINE ACTIVITY Monitor Mode: External Frequency (min): 2-3 Quality: Moderate Duration (sec): 50+ Pattern: Normal: <= 5 Contractions in 10 Minutes Resting Tone (Palpate): Relaxed Contraction Comments: Contractions not tracing while laying on her side. ASSESSMENT A Monitor Mode: Telemetry FHR Baseline Rate : 115 Variability: Moderate 6-25 bpm Accelerations: 15X15 Decelerations: None Category: Category I Oxygen Method: Room Air Datetime: 03/20/2019 15:29 Monitor Interventions for FHR: Ultrasound Adjusted Datetime: 03/20/2019 15:26 Vaginal Bleeding: Normal Show Cervix, Consistency: Soft Cervix, Position: Anterior Vaginal Exam Comments: Cervix is stretchy I/O Interventions: [place] Cath Inserted Datetime: 03/20/2019 14:26 PATIENT CARE IV/Blood Work: IV Infusing per Order Patient Care Comments: 100 mls/hr Datetime: 03/20/2019 14:15 Monitor Interventions for UA: [place] Adjusted Datetime: 03/20/2019 14:11 Epidural Procedure: Loading Dose Datetime: 03/20/2019 14:01 Comments: Adjusting US monitor. Restless and having difficulty maintaining position. Attempting t o have an epidural placed Anesthesia Comments: needle placed Datetime: 03/20/2019 13:51 ANESTHESIA Anesthesia Plans: Epidural Datetime: 03/20/2019 13:50 MEDICATIONS Analgesics/Sedatives: Fentanyl (mcg) @ 50 Datetime: 03/20/2019 13:24 PAIN Pain Scale: 10 Pain Coping: Crying; Other Pain Assessment Comments: Wants to try nitrous. Nitrous set up whild Shani is getting dried off Comfort Measures: Breathing/Relaxation; Family Support Datetime: 03/20/2019 12:10 Hygiene: Shower Datetime: 03/20/2019 11:40 Pain Presence: Intermittent Pain Type: Cramping Pain Location: Abdomen Pain Relief Measures: Comfort Measures Datetime: 03/20/2019 08:59 FHR Baseline Changes: No Baseline Change
== END 2019-03-22 12:55 | disposition home or self-care (01) | DRG 807 ==
LOC: WFO 06:26 → FBP 06:31 → WFO 07:32 → FBP 07:33
PROVIDERS: ADMIT Nurse Practitioner Obstetrics & Gynecology; ATTEND Nurse Practitioner Obstetrics & Gynecology
PROC: 10E0XZZ Delivery of Products of Conception, External Approach (ICD-10-PCS; principal; 2019-03-20)
PROC: 10907ZC Drainage of Amniotic Fluid, Therapeutic from Products of Conception, Via Natural or Artificial Opening (ICD-10-PCS; 2019-03-20)
DX: O99.344 Other mental disorders complicating childbirth (principal); Z37.0 Single live birth; F41.0 Panic disorder [episodic paroxysmal anxiety]; O70.0 First degree perineal laceration during delivery; Z3A.39 39 weeks gestation of pregnancy; Z87.09 Personal history of other diseases of the respiratory system; Z87.42 Personal history of other diseases of the female genital tract; Z86.69 Personal history of other diseases of the nervous system and sense organs; Z81.8 Family history of other mental and behavioral disorders
CPT/HCPCS: 85025; A9270; J7120

== ENCOUNTER 2020-02-08 17:04 | Outpatient (CLI) | payer OTHER | END 2020-02-08 17:05 | disposition home or self-care (01) | LOC: COV 17:04 | PROVIDERS: ATTEND Family Medicine | DX: R05 Cough (principal); R09.81 Nasal congestion; Z20.828 Contact with and (suspected) exposure to other viral communicable diseases ==